=== PATIENT | female | born 1955 | race Caucasian/White ===

== ENCOUNTER → 2016-10-31 | Outpatient (CLI) | payer BC, OTHER ==
--- NOTE | 2016-11-03 11:30 | SLEEPHOME ---
DATE OF PROCEDURE: 10/31/2016 ORDERED BY: Dr. Bailey. INTERPRETATION: Diagnostic home sleep testing was performed due to concern for the obstructive sleep apnea syndrome in this patient with multiple cormorbidities. For testing, a NOX-T3 respiratory monitoring device was used. Continuous record was made of pulse, oxygen saturation, air flow, chest and abdominal strain, and body position. 10 hours and 59 minutes of data were reviewed. Of these, 6 hours and 55 minutes were marked as time in bed. During the interval marked time in bed, there were 139 respiratory events identified of 10 seconds in duration or greater for a respiratory event index of 20.1. The events were primarily obstructive. Patient's average pulse rate 54 beats per minute. Pulse rate ranged from 36 to 133. Baseline saturation 93%. Lowest oxygen saturation 80%. Testing was performed in both the supine and non-supine positions. IMPRESSION: Abnormal home sleep testing with repetitive respiratory events and oxygen desaturations to 80% with a respiratory event index of 20.1 is consistent with the obstructive sleep apnea syndrome. RECOMMENDATION: The patient should be encouraged to undergo formal sleep evaluation and in laboratory pressure titration as home automated pressure devices do not adjust for oxygen need.
== END ==
LOC: M SLEEP HO 08:48
PROVIDERS: ATTEND Internal Medicine Pulmonary Disease
DX: G47.9 Sleep disorder, unspecified (principal)

== ENCOUNTER → 2016-11-25 | Outpatient (CLI) | payer OTHER ==
--- NOTE | 2016-11-25 17:01 | REP ---
Left wrist four views: There are no comparison studies. The distal ulna has been resected. There is no acute fracture or dislocation. Carpal joint spaces are symmetric. There are no calcifications or foreign bodies. Impression: Resection of the distal ulna. Otherwise, negative left wrist. Signed by Eugenio Loredo MD 11/25/2016 04:53 P
--- NOTE | 2016-11-25 17:40 | REP ---
Left shoulder series: Three views: History: Contusion. Findings: Three views of the left shoulder are compared with the 06/11/2014 prior study. Glenohumeral and acromioclavicular joints are normally aligned. Periarticular soft tissues are unremarkable. No erosive change is seen. No evidence of fracture or subluxation seen. Impression: No traumatic abnormality noted. Signed by Macario Schwartz MD 11/28/2016 05:35 P
--- NOTE | 2016-11-25 17:41 | REP ---
Left clavicle series: Two views: History: Contusion. Findings: AP and tube angled views of the left clavicle demonstrate normal bones, joints, and soft tissues. Impression: No fracture seen. Signed by Macario Schwatrz MD 11/28/2016 05:34 P
--- NOTE | 2016-11-25 17:42 | REP ---
Left hand series: Four views: History: Contusion. Findings: The distal ulna has been resected. 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 Overall mineralization pattern is normal. No fracture or subluxation is seen. No significant change from the 08/28/2013 prior study. Impression: No acute bony abnormality. Status post resection distal ulna. Signed by Macario Schwartz MD 11/28/2016 05:35 P
== END ==
LOC: M WUC 16:19
PROVIDERS: ATTEND Physician Assistant
DX: S40.012A Contusion of left shoulder, initial encounter (principal); S60.222A Contusion of left hand, initial encounter; X58.XXXA Exposure to other specified factors, initial encounter; Y92.9 Unspecified place or not applicable; Y93.9 Activity, unspecified; Y99.9 Unspecified external cause status

== ENCOUNTER → 2016-12-08 | Outpatient (CLI) | payer BC, OTHER ==
--- NOTE | 2016-12-11 13:51 | SLEEPCENT ---
DATE OF STUDY: 12/08/2016 ORDERING PROVIDER: Leonardo Bailey DO Nocturnal polysomnography was performed for the titration of pressure therapy in this patient with a clinical diagnosis of obstructive sleep apnea syndrome, confirmed by home testing, which revealed a respiratory event index of 20.1. For testing, the patient was fit with a [employer] Doan Nasal Pillow device. 4 cm of water pressure were applied to the circuit, and the lights were extinguished. 7 hours and 17 minutes of data were reviewed. There were 316 minutes of sleep identified. Sleep latency was prolonged at 38 minutes. Rapid eye movement (REM) latency was prolonged at 180 minutes. Sleep architecture improved later in the study with optimal pressure therapy, and there were three REM periods appreciated. Overall sleep efficiency was 73.8%. The patient's electrocardiogram (EKG) showed a sinus rhythm with a bradycardic rate of 40 beats per minute. Electroencephalogram (EEG) showed normal waveforms for awake and sleep. Respiratory events were fully palliated with continuous positive airway pressure (CPAP) at a pressure of +8. CPAP tolerance was good. There was minimal limb activity, and remaining measures of sleep physiology were normal. Oxygen saturations remained 90%+. IMPRESSION: Obstructive sleep apnea syndrome (G47.33). RECOMMENDATION: Nightly use of pressure therapy 8 cm of water.
== END ==
LOC: M SLEEP 20:06
PROVIDERS: ATTEND Internal Medicine Pulmonary Disease
DX: G47.33 Obstructive sleep apnea (adult) (pediatric) (principal)

== ENCOUNTER → 2016-12-08 | Outpatient (CLI) | payer BC, OTHER ==
--- NOTE | 2016-12-09 08:11 | REP ---
Clinical: Chronic cough . Comparison: 07/20/2016 . Technique: PA and lateral. Findings: The mediastinum and cardiac silhouette are normal. The lung brennan are clear and without acute consolidation, effusion, or pneumothorax. The skeletal structures are intact and normal. Impression: 1. No acute cardiopulmonary process. Signed by Bk Phipps MD 12/09/2016 02:55 A
== END ==
LOC: M SMT 13:24
PROVIDERS: ATTEND Internal Medicine Pulmonary Disease
DX: R05 Cough (principal)

== ENCOUNTER → 2016-12-28 | Outpatient (CLI) | payer BC, OTHER ==
[~2016-12-28] MED LIST: METHACHOLINE KIT (J7674) INH ONE
--- NOTE | 2016-12-28 09:00 | PFTRPT ---
Tech: Rubi PULIDO RRT Age: 61 Sex: Female Race: Height: 64.00 Inches Weight: 218.00 Lbs BSA: 2.03 Diagnosis: R05 METHACHOLINE CHALLENGE REPORT: ORDERING PROVIDER: Leonardo Bailey DO DATE OF SERVICE: 12/28/16 INTERPRETATION: The study was of excellent technical quality. Under protocol, methacholine was administered. At a dose of 0.025 mg (0.125 CDUs), a 43% decline in the FEV1 was noted. The PC20 was not calculated due to the above. Flow rates did return to better than baseline post bronchodilator administration. IMPRESSION: Positive methacholine challenge study. MTDD
== END ==
LOC: M CARPUL 08:25
PROVIDERS: ATTEND Internal Medicine Pulmonary Disease
DX: R94.2 Abnormal results of pulmonary function studies (principal)
CPT/HCPCS: 94070; J7674

== ENCOUNTER → 2017-03-22 | Outpatient (REF) | payer OTHER ==
[~2017-03-22] MED LIST changes: +ASPI81TA85 PO; +BAYE325T12 PO; +BREO1INH3 INH; +DEXI60CA2 PO; +IBUP1TAB7 PO; +LOSA100T36 PO; -METHACHOLINE KIT (J7674) INH ONE; +PRAV40TA2 PO; +VENTAER IN; +VITA200015 PO; +VITA500T PO
[2017-03-22 14:15] LABS: FREE T4 1.06 NG/DL (0.76-1.46)
[2017-03-25 00:06] LABS: D001-IgE D pteronyssinus <0.10 kU/L (Class 0); E001-IgE Cat Epith/Dander < 0.10 kU/L (Class 0); E005-IgE Dog Dander < 0.10 kU/L (Class 0); G002-IgE Bermuda Grass < 0.10 kU/L (Class 0); G008-IgE Kentucky Bluegrass < 0.10 kU/L (Class 0); M001-IgE Penicillium chrysogen < 0.10 kU/L (Class 0); M002 IgE Cladosporium herbaru < 0.10 kU/L (Class 0); M003 IgE Aspergillus fumigatu < 0.10 kU/L (Class 0); M006-IgE Alternaria alternata < 0.10 kU/L (Class 0); T001-IgE Maple/Box Elder < 0.10 kU/L (Class 0); T003-IgE Common Silver Birch < 0.10 kU/L (Class 0); T007-IgE Oak, White < 0.10 kU/L (Class 0); T008-IgE Elm, American < 0.10 kU/L (Class 0); T015-IgE Ash, White < 0.10 kU/L (Class 0); T041-IgE Hickory, White < 0.10 kU/L (Class 0); W001-IgE Ragweed, Short < 0.10 kU/L (Class 0); W009-IgE Plantain, English < 0.10 kU/L (Class 0); W014-IgE Pigweed, Rough < 0.10 kU/L (Class 0); W018-IgE Sheep Sorrel < 0.10 kU/L (Class 0)
== END ==
LOC: M LAB REF 12:51
PROVIDERS: ATTEND Internal Medicine Pulmonary Disease
DX: J45.20 Mild intermittent asthma, uncomplicated (principal); G47.33 Obstructive sleep apnea (adult) (pediatric)

== ENCOUNTER 2017-03-24 11:52 | Day surgery (SDC) | payer BC, OTHER ==
[~2017-03-24] VITALS: Ht 162.6 cm; Wt 98.4 kg
[~2017-03-24 11:52] MED LIST changes: +LIDOCAINE 2% INJ 100 MG/5 ML SDV (FOR ANES.) As Ordered ONE; +PROPOFOL 200 MG/20 ML VIAL As Ordered ONE
[2017-03-24] MEDS: NS 1,000 ML IV ONE (13:30)
--- NOTE | 2017-03-24 14:04 | ROOR ---
Patient Name: Siri Humphreys Procedure Date: 03/24/2017 1:52 PM Date of : 1955 Age: 62 Room: [facility] Gender: Female Note Status: Finalized Procedure: Upper GI endoscopy Indications: Surveillance for malignancy due to personal history of Herring's esophagus, Heartburn Providers: Serafin TAYLOR MD Referring MD: Sonya Frost NP Requesting Provider: Medicines: Monitored Anesthesia Care Complications: No immediate complications. Procedure: Pre-Anesthesia Assessment: - The heart rate, respiratory rate, oxygen saturations, blood pressure, adequacy of pulmonary ventilation, and response to care were monitored throughout the procedure. The Endoscope was introduced through the mouth, and advanced to the second part of duodenum. The upper GI endoscopy was accomplished without difficulty. The patient tolerated the procedure well. Findings: The Z-line was variable and was found 35 cm from the incisors. This was biopsied with a cold forceps for histology. Small Hiatal Hernia. The esophagus was normal. The stomach was normal. The examined duodenum was normal. Impression: - Z-line variable, 35 cm from the incisors. Biopsied. - Otherwise normal esophagus. - Small Hiatal Hernia. - Otherwise normal stomach. - Normal examined duodenum. Recommendation: - Continue present medications. - Follow an antireflux regimen. - Repeat upper endoscopy in 3 years for surveillance. Serafin Taylor MD Serafin TAYLOR MD 03/24/2017 2:04:25 PM This report has been signed electronically. Number of Addenda: 0 Note Initiated On: 03/24/2017 1:52 PM Estimated Blood Loss: Estimated blood loss: none.
[2017-03-24 14:20] VITALS: BP 162/78
== END 2017-03-24 14:31 | disposition home or self-care (01) ==
LOC: M OPP 11:52
PROVIDERS: ATTEND Internal Medicine Gastroenterology
DX: K22.70 Barrett's esophagus without dysplasia (principal); K22.8 Other specified diseases of esophagus; R12 Heartburn; K44.0 Diaphragmatic hernia with obstruction, without gangrene; I10 Essential (primary) hypertension; K21.9 Gastro-esophageal reflux disease without esophagitis; E78.00 Pure hypercholesterolemia, unspecified; G47.30 Sleep apnea, unspecified; R00.8 Other abnormalities of heart beat; I34.0 Nonrheumatic mitral (valve) insufficiency; M13.80 Other specified arthritis, unspecified site; Z79.82 Long term (current) use of aspirin; Z79.899 Other long term (current) drug therapy; Z91.030 Bee allergy status; Z91.011 Allergy to milk products; Z86.718 Personal history of other venous thrombosis and embolism; Z86.711 Personal history of pulmonary embolism; Z80.3 Family history of malignant neoplasm of breast

== ENCOUNTER → 2017-04-19 | Outpatient (REF) | payer OTHER ==
[~2017-04-19] MED LIST changes: -LIDOCAINE 2% INJ 100 MG/5 ML SDV (FOR ANES.) As Ordered ONE; -PROPOFOL 200 MG/20 ML VIAL As Ordered ONE
[2017-04-19 19:27] LABS: BACTERIA, URINE NONE SEEN; HYALINE CAST, URINE NONE SEEN /lpf (0-1); MICROSCOPIC EXAM PERFORMED; RBC, URINE NONE SEEN /hpf (0-3); SQUAMOUS EPITHELIAL CELL URINE SMALL AMOUNT /hpf (SMALL AMT); WBC, URINE 0-1 /hpf (0-3)
== END ==
LOC: M SMT 16:58
PROVIDERS: ATTEND Specialist
DX: N20.0 Calculus of kidney (principal)

== ENCOUNTER → 2017-07-10 | Outpatient (REF) | payer OTHER ==
[2017-07-10 17:00] LABS: D-DIMER QUANT 301.4 ng/ml (<500)
[2017-07-10 17:19] LABS: NT-PRO BNP 139 PG/ML (<125)
== END ==
LOC: M SFHCPLAZ 15:04
DX: R09.02 Hypoxemia (principal)
CPT/HCPCS: 36415

== ENCOUNTER → 2017-07-10 | Outpatient (CLI) | payer BC, OTHER | LOC: M RAD 15:29 | DX: R09.02 Hypoxemia (principal) | CPT/HCPCS: 71046 ==

== ENCOUNTER → 2017-07-27 | Outpatient (REF) | payer OTHER ==
[2017-07-27 15:52] LABS: ANION GAP 8 MEQ/L (8-16); BLOOD UREA NITROGEN 17 MG/DL (7-18); CALCIUM LEVEL 9.3 MG/DL (8.8-10.2); CARBON DIOXIDE LEVEL 27 MEQ/L (21-32); CHLORIDE LEVEL 106 MEQ/L (98-107); CPK CREATINE PHOSPHOKINASE 87 U/L (26-192); CREATININE FOR GFR 0.94 MG/DL (0.55-1.30); GLOMERULAR FILTRATION RATE > 60.0 (>45); GLUCOSE, FASTING 91 MG/DL (70-100); POTASSIUM SERUM 4.3 MEQ/L (3.5-5.1); SODIUM LEVEL 141 MEQ/L (136-145)
== END ==
LOC: M SFHCPLAZ 13:59
DX: M79.1 Myalgia (principal)

== ENCOUNTER → 2017-12-01 | Outpatient (CLI) | payer OTHER | LOC: M RAD 08:32 | DX: R10.11 Right upper quadrant pain (principal) | CPT/HCPCS: 76705 ==

== ENCOUNTER → 2017-12-27 | Outpatient (CLI) | payer BC, OTHER ==
[2017-12-27 13:52] LABS: ALBUMIN 3.6 GM/DL (3.2-5.2); ALBUMIN/GLOBULIN RATIO 1.16 (1.00-1.93); ALKALINE PHOSPHATASE 125 U/L (45-117); ALT/SGPT 24 U/L (12-78); ANION GAP 9 MEQ/L (8-16); AST/SGOT 15 U/L (7-37); BILIRUBIN,TOTAL 0.4 MG/DL (0.2-1.0); BLOOD UREA NITROGEN 13 MG/DL (7-18); CALCIUM LEVEL 9.2 MG/DL (8.8-10.2); CARBON DIOXIDE LEVEL 26 MEQ/L (21-32); CHLORIDE LEVEL 110 MEQ/L (98-107); CHOLESTEROL LEVEL 192 MG/DL (<200); CHOLESTEROL RISK RATIO 2.865 (<5); CREATININE FOR GFR 0.98 MG/DL (0.55-1.30); GLOMERULAR FILTRATION RATE > 60.0 (>45); GLUCOSE, FASTING 113 MG/DL (70-100); HDL CHOLESTEROL 67 MG/DL (>40); LDL CHOLESTEROL 99.8 MG/DL (<100); NON-HDL-C 125 MG/DL; POTASSIUM SERUM 4.1 MEQ/L (3.5-5.1); SODIUM LEVEL 145 MEQ/L (136-145); TOTAL PROTEIN 6.7 GM/DL (6.4-8.2); TRIGLYCERIDES LEVEL 126 MG/DL (<150)
[2017-12-27 15:30] LABS: ESTIMATED AVERAGE GLUCOSE 128 MG/DL (60-110); HEMOGLOBIN A1c 6.1 %
== END ==
LOC: M SMT 09:39
DX: I10 Essential (primary) hypertension (principal); E74.39 Other disorders of intestinal carbohydrate absorption; E78.2 Mixed hyperlipidemia
CPT/HCPCS: 80053